=== PATIENT | female | born 1965 | race Caucasian/White ===

== ENCOUNTER → 2017-05-16 | Outpatient (CLI) | payer BC ==
--- NOTE | 2017-05-17 10:39 | Diagnostic Imaging Report ---
INDICATION: Digital mammogram bilateral screening. COMPARISON: This study was compared to the prior exam of 11/06/2014. PERSONAL HISTORY: At this time, there are no current complaints. TECHNIQUE: Screening digital mammography was performed bilaterally with a Computer Aided Detection (CAD) system. FINDINGS: The fibroglandular tissue in both breasts is heterogeneously dense. This does limit the sensitivity of this exam. Overall, there does not appear to have been any significant change when compared to the prior study. No primary or secondary sign of malignancy is noted. IMPRESSION: 1. There is no evidence for malignancy. 2. The patient should have her annual bilateral screening mammogram on schedule in May 2018. ACR BI-RADS Category 1: Negative. Result letter will be mailed to the patient. Note: At least 10% of breast cancer is not imaged by mammography. Dictated by: Dictated on workstation # [id number]
== END ==
LOC: RAD 15:14
PROVIDERS: ATTEND Family Medicine
DX: Z12.31 Encounter for screening mammogram for malignant neoplasm of breast (principal)
CPT/HCPCS: 77067

== ENCOUNTER → 2020-01-08 | Outpatient (CLI) | payer BC ==
--- NOTE | 2020-01-08 11:54 | Diagnostic Imaging Report ---
EXAMINATION: Left elbow, 3 views INDICATION: Left elbow pain and swelling. Patient reports remote history of trauma and radial head fracture. COMPARISON: Left elbow radiographs performed on 07/28/2008. FINDINGS: No fracture or acute osseous abnormality. Bony alignment is maintained. No prominent arthritic changes noted. Soft tissues are unremarkable. There is no elbow joint effusion. IMPRESSION: No acute fracture or dislocation. Dictated by: Dictated on workstation # [id number]
== END ==
LOC: RAD 11:17
PROVIDERS: ATTEND Family Medicine
DX: M25.522 Pain in left elbow (principal)
CPT/HCPCS: 73080

== ENCOUNTER → 2021-12-12 | Outpatient (CLI) | payer BC ==
--- NOTE | 2021-12-12 16:46 | Diagnostic Imaging Report ---
Indication: Low back pain AP and lateral views of lumbar spine are obtained. Lumbar spinal curvature and alignment are unremarkable. There is moderate narrowing of the L4-L5 disc space. Sclerosis is present at the L4-L5 and L5-S1 facet joints. There is spina bifida occulta at L5. Punctate calcification in the right abdomen may reflect stone in the lower pole right kidney. Additional rounded calcifications in left lower abdomen could be due to phleboliths. Appears to be surgical suture in the pelvis bilaterally. IMPRESSION: Focal L4-L5 degenerative disc disease with lower lumbar degenerative facet arthropathy. Otherwise, no acute abnormality is seen. Dictated by: Dictated on workstation # [id number]
--- NOTE | 2021-12-12 18:15 | Diagnostic Imaging Report ---
EXAMINATION: Sacroiliac joint radiographs, 3 views. COMPARISON: None. HISTORY: 56-year-old female, bilateral sacroiliac joint pain. FINDINGS: The sacroiliac joint spaces are well preserved. There is no partial or complete bone ankylosis. There is no bone erosion. The hip joints are grossly unremarkable in appearance. There is disc height loss at L4-L5. IMPRESSION: 1. Unremarkable evaluation of the sacroiliac joints. 2. Disc degenerative changes at L4-L5. Dictated on workstation # [id number]
== END ==
LOC: RAD 16:14
PROVIDERS: ATTEND Family Medicine
DX: M51.36 Other intervertebral disc degeneration, lumbar region (principal); M47.816 Spondylosis without myelopathy or radiculopathy, lumbar region
CPT/HCPCS: 72100; 72202

== ENCOUNTER 2022-01-20 18:36 | Emergency (ER) | payer BC ==
[~2022-01-20] VITALS: Ht 170.2 cm; Wt 65.8 kg
[2022-01-20] MEDS ORDERED: ONDANSETRON 4 MG/2 ML (SDV) Z0FRAN IVP ONE (19:00)
[2022-01-20] MEDS ORDERED: fentaNYL INJ 100 MCG/2 ML AMP IVP ONE ×2 (19:00→20:00)
[2022-01-20] MEDS ORDERED: NS IV 1000 ML 1,000 ML IV SCH (19:00)
--- NOTE | 2022-01-20 19:03 | ED Fall/Injury ---
General Stated Complaint: FELL AND INJURED ARM Source: patient, family () Exam Limitations: no limitations History of Present Illness Date Seen by Provider: January 20, 2022 Time Seen by Provider: 18:57 Initial Comments Patient is a 56-year-old female who presents to the emergency department with a chief complaint of severe left elbow pain and left ankle pain. She was standing on a ladder and fell approximately 5 feet onto her left side. Immediate pain and what appears to be obvious dislocation of the left elbow. Patient states that she scraped up her knees. She did not hit her head or have a loss of consciousness. She is not on blood thinners. No other complaints of injuries other than the left ankle and left elbow. She states her last tetanus shot was about 3 years ago. She is slightly nauseous due to the pain. She has not taken anything for the pain. All other review of systems reviewed and negative except as stated Occurred: just prior to arrival Severity: severe Injuries/Pain Location: upper extremity (elbow), lower extremity (ankle) Context: lost balance Loss of Consciousness: no loss of consciousness Modifying Factors: Improves With Immobilization Associated Symptoms (Fall): Nausea/Vomiting Allergies and Home Medications Allergies Coded Allergies: morphine (Verified Allergy, Unknown, 01/20/22) Patient Home Medication List Home Medication List Reviewed: Yes Hydrocodone/Acetaminophen (Hydrocodone-Acetamin 7.5-325) 7.5 Mg-325 Mg Tablet, 1 EACH PO Q6H PRN for PAIN-MODERATE (5-7) Prescribed by: QUAN HEWITT on 01/20/22 2030 Review of Systems Review of Systems Constitutional: see HPI Eyes: No Symptoms Reported Ears, Nose, Mouth, Throat: no symptoms reported Respiratory: no symptoms reported Cardiovascular: no symptoms reported Gastrointestinal: nausea Genitourinary: no symptoms reported Musculoskeletal: joint pain (left ankle; left elbow) Skin: other (abrasions) Psychiatric/Neurological: No Symptoms Reported All Other Systems Reviewed Negative Unless Noted: Yes Physical Exam Vital Signs Vital Signs - First Documented 01/20/22 18:52 Temp 36.2 Pulse 78 Resp 22 B/P (MAP) 129/95 (106) Pulse Ox 100 O2 Delivery Room Air Capillary Refill : Height, Weight, BMI Height: '" Weight: lbs. oz. kg; BMI Method: General Appearance: WD/WN, no apparent distress HEENT: PERRL/EOMI, pharynx normal Neck: non-tender, full range of motion, supple, normal inspection Cardiovascular: regular rate, rhythm Respiratory: lungs clear, normal breath sounds, no respiratory distress, no accessory muscle use Gastrointestinal: non tender, soft Back: normal inspection Extremities: normal capillary refill, pelvis stable, other (Left ankle, swelling over the lateral malleolus, neurovascularly intact, no open wounds. Ankle joint is stable. Left elbow is obviously dislocated posteriorly. Multiple superficial abrasions over the olecranon. No open lacerations or punctures are observed.) Neurologic/Psychiatric: alert, normal mood/affect, oriented x 3, other (Patient has decreased sensation especially to the left fourth and fifth fingers, has intact range of motion) Skin: normal color, warm/dry Arnulfo Coma Score Best Eye Response: (4) Open Spontaneously Best Verbal Response: (5) Oriented Best Motor Response: (6) Obeys Commands Procedures/Interventions Patient Education: Explained Benefits, Explained Risks, Pt. Ack. Understanding Agreement on procedure with pt: Yes Breath Sounds per Auscultation: Clear Heart Sounds per Auscultation: Regular Airway Exam: Mouth opens >2 fingers, Neck Full Range of Motion, Visulation of Uvula Sedation Adminstration Time: 19:58 Total Time spent in CS 19 min patient was given 2 doses of 2.5mg of versed; longitudinal traction applied and elbow joint was felt to successfully reduce. Patient remains NVI. post reduction xrays ordered Re-examination Time: 20:17 Re-examination remains NVI; alert and aware Splinting and Joint Reduction : Location: left elbow reduction Pre-Proc Neuro Vasc Exam: normal Post-Proc Neuro Vasc Exam: normal Progress tolerated sedation and reduction very well. no change in VS Pre-Procedure NV Exam: Yes post joint reduction film: joint reduced Arm Sling: Medium (with long arm posterior splint) Hand-Made Type: orthoglass Splint Application: Long Arm Progress left elbow "soft space" identified between the radial head and olecranon; prepped with betadine x3 and joint space entered with 18g needle, aspiration of 9cc of hematoma with subsequent infiltration of 10cc 1% lidocaine. after about 5 minutes, attempt at supination, unsuccessful due to patient apprehension and continued pain. elected at this time procedural sedation for reduction Progress/Results/Core Measures Results/Orders My Orders Orders - QUAN HEWITT MD Ed Iv/Invasive Line Start (01/20/22 19:00) Fentanyl Inj (Sublimaze Injection) (01/20/22 19:00) Ondansetron Injection (Zofran Injectio (01/20/22 19:00) Ns Iv 1000 Ml (Sodium Chloride 0.9%) (01/20/22 19:00) Ankle, Left, 3 Views (01/20/22 19:00) Elbow, Left, 2 Views (01/20/22 19:00) Lidocaine 1% Inj 30 Ml (Xylocaine 1% Inj (01/20/22 19:30) Lidocaine 1% Inj 20 Ml (Xylocaine 1% Inj (01/20/22 19:26) Fentanyl Inj (Sublimaze Injection) (01/20/22 19:29) Midazolam Injection (Versed Injection) (01/20/22 19:45) Fentanyl Inj (Sublimaze Injection) (01/20/22 20:00) Elbow, Left, 2 Views (01/20/22 20:14) Rx-Hydrocodone/Apap 5-325 Mg (Rx-Vicodin (01/20/22 20:45) Medications Given in ED Current Medications Medications Dose Ordered Sig/Jovita Route Start Time Stop Time Status Last Admin Dose Admin Acetaminophen/ Hydrocodone Bitart 1 ea Q6H PRN PO 01/20/22 20:45 01/20/22 20:58 DC 01/20/22 20:43 1 EA Fentanyl Citrate 50 mcg ONCE ONCE IVP 01/20/22 19:00 01/20/22 19:02 DC 01/20/22 19:09 50 MCG Fentanyl Citrate 100 mcg ONCE ONCE IVP 01/20/22 20:00 01/20/22 20:01 DC 01/20/22 19:57 100 MCG Lidocaine HCl 20 ml STK-MED ONCE .ROUTE 01/20/22 19:26 01/20/22 19:28 DC 01/20/22 19:30 20 ML Midazolam HCl 2.5 mg ONCE ONCE IVP 01/20/22 19:45 01/20/22 19:46 DC 01/20/22 19:57 2.5 MG Ondansetron HCl 4 mg ONCE ONCE IVP 01/20/22 19:00 01/20/22 19:02 DC 01/20/22 19:09 4 MG Vital Signs/I&O 01/20/22 01/20/22 01/20/22 18:52 19:53 20:50 Temp 36.2 Pulse 78 69 Resp 22 20 B/P (MAP) 129/95 (106) 130/96 Pulse Ox 100 100 O2 Delivery Room Air Room Air Room Air Progress Progress Note : Time: 20:20 Progress Note Case discussed with Dr Gentile. Advised of "possible" supracondylar fx on pre reduction films - may see it better on post. He is happy with reduction and splinting. Will see her first part of next week. States usually keeps splint in place 5 days then out and mobile. Will have Dr Richardson call the office first thin g Sunday. Home with ice packs and elevation to left ankle and elbow. Pain medications. return precaution. Diagnostic Imaging Diagonstic Imaging: [facility] [place] [place] NAME: GELY RICHARDSON [facility] REC#: [id number] PT STATUS: REG ER : 1965 PHYSICIAN: QUAN HEWITT MD ADMIT DATE: 01/20/22/ER Signed Date of Exam:01/20/22 ELBOW, LEFT, 2 VIEWS CLINICAL HISTORY: Fall. Left elbow pain. COMPARISON: 01/08/2020. TECHNIQUE: 2 views of the left elbow. FINDINGS: Dislocation of the left radiohumeral and ulnohumeral joints are visualized. Possible supracondylar fracture is visualized in the distal left humerus although this is somewhat difficult to characterize due to positioning. Prominent joint effusion is seen in the left elbow. IMPRESSION: Dislocation of the left radiohumeral and ulnohumeral joints with possible supracondylar fracture involving the distal left humerus. Dictated by: Dictated on workstation # [id number] Dict: 01/20/221926 Trans: 01/20/221936 [facility] [id number] Interpreted by: CHELY JONES DO Electronically signed by: CHELY JONES DO 01/20/221936 Diagonstic Imaging: Xray Comments [facility], [place], [place] NAME: GELY RICHARDSON [facility] REC#: [id number] PT STATUS: REG ER : 1965 PHYSICIAN: QUAN HEWITT MD ADMIT DATE: 01/20/22/ER Signed Date of Exam:01/20/22 ANKLE, LEFT, 3 VIEWS CLINICAL HISTORY: Fall. Left ankle pain. COMPARISON: None. TECHNIQUE: 3 views of the left ankle. FINDINGS: There is no acute fracture or dislocation of the left ankle. Alignment is anatomic. The imaged joint spaces are preserved. Soft tissue edema is seen along the lateral malleolus of the left ankle. IMPRESSION: 1. No acute fracture or dislocation in the left ankle. 2. Soft tissue edema overlying the lateral malleolus. Dictated by: Dictated on workstation # [id number] Dict: 01/20/221925 Trans: 01/20/221927 [facility] [id number] Interpreted by: CHELY JONES DO Electronically signed by: CHELY JONES DO 01/20/221927 Departure Impression Primary Impression: Dislocation of left elbow Qualified Codes: S53.105A - Unspecified dislocation of left ulnohumeral joint, initial encounter Additional Impressions: Sprain of left ankle Qualified Codes: S93.402A - Sprain of unspecified ligament of left ankle, initial encounter Abrasion of left elbow Qualified Codes: S50.312A - Abrasion of left elbow, initial encounter Disposition: 01 HOME, SELF-CARE Condition: Improved Departure-Patient Inst. Decision time for Depature: 20:26 Referrals: RODOLFO RICHARDSON MD (PCP/Family) Primary Care Physician DAMIÁN GENTILE MD Patient Instructions: Ankle Sprain ED, Elbow Dislocation Add. Discharge Instructions: Keep the splint in place until you follow-up with Dr. Gentile next week. Keep your left ankle as well as your left elbow elevated with ice packs for 20 minutes at a time multiple times throughout the day for the next 2 to 3 days. You can take ibuprofen in addition to the prescribed pain medications. Take ibuprofen 600 mg every 6 hours with food for inflammation and pain. The hydrocodone can also be taken every 6 hours. Take this medication with food. Hydrocodone will make you sleepy, do not drive and take it. Also hydrocodone can cause constipation, if you are taking the pain medication daily you need to be on a daily stool softener. You can walk on the ankle sprain. Return to the emergency department for any new, concerning or emergent complaints. If you feel the Virgil wrap on the splint is too tight and you have pain, numbness and tingling in your hand or fingers you can loosen it slightly. Scripts Hydrocodone/Acetaminophen (Hydrocodone-Acetamin 7.5-325) 7.5 Mg-325 Mg Tablet 1 EACH PO Q6H PRN for PAIN-MODERATE (5-7), #20 TAB Prov: QUAN HEWITT MD 01/20/22 Copy Copies To 1: DAMIÁN GENTILE MD, KATHRYN M MD January 20, 2022 19:03
[2022-01-20] MEDS ORDERED: LIDOCAINE 1% INJ 20 ML VIAL ONE (19:26)
--- NOTE | 2022-01-20 19:28 | Diagnostic Imaging Report ---
CLINICAL HISTORY: Fall. Left ankle pain. COMPARISON: None. TECHNIQUE: 3 views of the left ankle. FINDINGS: There is no acute fracture or dislocation of the left ankle. Alignment is anatomic. The imaged joint spaces are preserved. Soft tissue edema is seen along the lateral malleolus of the left ankle. IMPRESSION: 1. No acute fracture or dislocation in the left ankle. 2. Soft tissue edema overlying the lateral malleolus. Dictated by: Dictated on workstation # [id number]
[2022-01-20] MEDS ORDERED: fentaNYL INJ 100 MCG/2 ML AMP ONE (19:29)
[2022-01-20] MEDS ORDERED: LIDOCAINE 1% INJ 30 ML (XYLOCAINE) VIAL INJ ONE (19:30)
--- NOTE | 2022-01-20 19:32 | Diagnostic Imaging Report ---
CLINICAL HISTORY: Fall. Left elbow pain. COMPARISON: 01/08/2020. TECHNIQUE: 2 views of the left elbow. FINDINGS: Dislocation of the left radiohumeral and ulnohumeral joints are visualized. Possible supracondylar fracture is visualized in the distal left humerus although this is somewhat difficult to characterize due to positioning. Prominent joint effusion is seen in the left elbow. IMPRESSION: Dislocation of the left radiohumeral and ulnohumeral joints with possible supracondylar fracture involving the distal left humerus. Dictated by: Dictated on workstation # [id number]
[2022-01-20] MEDS ORDERED: MIDAZOLAM 5 MG/5 ML (VERSED) VIAL IVP ONE (19:45)
[2022-01-20] MEDS ORDERED: HYDR-3817 PO (20:30)
[2022-01-20 20:50] VITALS: BP 130/96
--- NOTE | 2022-01-20 21:00 | Diagnostic Imaging Report ---
CLINICAL HISTORY: Postreduction. Left elbow dislocation. COMPARISON: Left elbow radiographs performed earlier the same date. TECHNIQUE: 3 views of the left elbow. FINDINGS: There has been successful reduction of the previously noted dislocation of the left elbow. No definite fracture is identified. In particular, no radiographic evidence of supracondylar fracture of the distal left humerus is seen. No focal osseous lesions. Joint effusion is again noted in the left elbow. Overlying casting material has been placed. IMPRESSION: 1. Successful reduction of the previously noted left elbow dislocation. 2. No radiographic evidence of acute fracture in the left elbow. The previously described possible supracondylar fracture in the distal left humerus likely represented artifact. However, if indicated, CT of the left elbow could be performed to further evaluate. 3. Moderate left elbow joint effusion. Dictated by: Dictated on workstation # [id number]
== END 2022-01-20 20:50 | disposition home or self-care (01) ==
LOC: EDUNIT# 18:36 → ER 18:38
DX: S53.105A Unspecified dislocation of left ulnohumeral joint, initial encounter (principal); S93.402A Sprain of unspecified ligament of left ankle, initial encounter; W11.XXXA Fall on and from ladder, initial encounter
CPT/HCPCS: 29125; 73070; 73610; 93041

== ENCOUNTER → 2022-05-08 | Outpatient (CLI) | payer BC ==
[~2022-05-08] MED LIST: HYDR-3817 PO
--- NOTE | 2022-05-08 10:53 | Diagnostic Imaging Report ---
Indication: Routine screening. Comparison is made with prior mammogram 05/16/2017. 2-D and 3-D bilateral screening mammography was performed with with CAD. CAD is utilized. The current study was also evaluated with a Computer Aided Detection (CAD) system. Both breast are heterogeneously dense, limiting the sensitivity of mammography. The parenchymal pattern is stable. No mass or malignant-appearing microcalcifications are seen. Occasional benign calcifications. Axillae are unremarkable. IMPRESSION: BI-RADS Category 2 No mammographic features suspicious for malignancy are identified. ACR BI-RADS Category 2: Benign findings. Result letter will be mailed to the patient. Note: At least 10% of breast cancer is not imaged by mammography. Dictated by: Dictated on workstation # [id number]
== END ==
LOC: RAD 07:35
PROVIDERS: ATTEND Family Medicine
DX: Z12.31 Encounter for screening mammogram for malignant neoplasm of breast (principal)
CPT/HCPCS: 77063; 77067